=== PATIENT | male | born 2000 | race Caucasian/White ===

== ENCOUNTER 2024-12-07 10:04 | Outpatient (CLI) | payer OTHER, SELFPAY ==
--- OUTSIDE RECORDS SUMMARY | 2024-12-07 11:14 | XMS_ITS | Clinical Summary ---
Author Organization [facility] Address [address] [place] [id number] Care Team Providers Care Employee Benefits Coordinator Name Role Phone Myrna Estrada PA-C Primary Care Provid er Allergies No known active allergies Medications ARIPiprazole (ABILIFY) 10 MG tablet Take 1 tablet (10 mg) by mouth daily Active divalproex (DEPAKOTE) 500 MG ER tablet Take 1 tablet (500 mg) by mouth at bedtime Active escitalopram (LEXAPRO) 10 MG tablet Take 1 tablet (10 mg) by mouth daily 11/06/2023 Active escitalopram (LEXAPRO) 20 MG tablet Take 1 tablet (20 mg) by mouth daily 11/06/2023 Active finasteride (PROPECIA) 1 MG tablet Take 1 tablet (1 mg) by mouth daily Active minoxidil (LONITEN) 2.5 MG tablet Take 1 tablet (2.5 mg) by mouth daily Active OLANZapine (ZYPREXA) 10 MG tablet Take 1 tablet (10 mg) by mouth at bedtime Active OLANZapine (ZYPREXA) 15 MG tablet Take 1 tablet (15 mg) by mouth daily 11/06/2023 Active Cholecalciferol 50 MCG (2000 UT) CAPS Take 1 capsule (2,000 Units) by mouth Nightly 08/17/2024 Active hydrOXYzine (ATARAX) 50 MG tablet Take 1 tablet (50 mg) by mouth 3 times daily as needed 08/17/2024 Active metFORMIN (GLUCOPHAGE XR) 500 MG XR tablet Take 2 tablets (1,000 mg) by mouth Nightly 08/17/2024 Active sertraline (ZOLOFT) 50 MG tablet Take 1 tablet (50 mg) by mouth daily Active traZODone (DESYREL) 50 MG tablet Take 1 tablet (50 mg) by mouth at bedtime 08/17/2024 Active vitamin B-12 (CYANOCOBALAMIN ) 1000 MCG tablet Take 1 tablet (1,000 mcg) by mouth daily Active gabapentin (NEURONTIN) 100 MG capsuleIndicati ons:Paresthesia of finger Take 2 capsules (200 mg) by mouth at bedtime 60 capsule 1 10/19/2024 01/18/20 25 Active Active Problems Problem Noted Date Diagnosed Date History of OCD (obsessive compulsive disorder) 0 09/20/2024 Migraine without aura and responsive to treatmen t 09/16/2024 Paresthesia of finger 09/16/2024 Bilateral impacted cerumen 07/14/2023 Male pattern alopecia 11/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 Allergic rhinitis 10/01/2022 Seasonal allergies 10/01/2022 Persistent insomnia 09/10/2022 Severe recurrent major depre ssion without psychotic features 04/03/2021 Mixed anxiety and depressive disorder 03/24/2021 Resolved Problems Problem Noted Date Diagnosed Date Resolved Date Anxiety 12/18/2020 09/16/2024 Encounters Date Type Department Care Team Description 10/19/[address] [phone] Myrna Estrada PA-C Medication Refill 10/13/2024 Orders Only [address] [phone] Myrna Estrada PA-C Paresthesia of finger (Primary Dx) 10/07/[address] [phone] Myrna Estrada PA-C Other 09/23/2024 Orders Only [address] [phone] Myrna Estrada PA-C Paresthesia of finger (Primary Dx) 09/23/[address] [place] [address] Myrna Estrada PA-C New Med Request 09/23/2024 Orders Only [address] [phone] Myrna Estrada PA-C Paresthesia of finger (Primary Dx) 09/22/[address] [phone] Myrna Estrada PA-C Other (Referral Follow Up) 09/20/[address] [phone] Myrna Estrada PA-C Finger Pain (Finger Numbness) 09/19/2024 Orders Only [address] [phone] Myrna Estrada PA-C Vitamin B 12 deficiency (Primary Dx) 09/18/2024 Results Follow-Up [address] [phone] Myrna Estrada PA-C VITAMIN B12 REFERENCE, TSH THIRD GENERATION 09/16/2024 6:30 PM CDT Lab/X-Ray Only [address] [phone] 09/16/2024 7:30 AM CDT Office Visit [address] [phone] Myrna Estrada PA-C Paresthesia of finger (Primary Dx); Mixed anxiety and depressive disorder from Last 3 Months Immunizations Immunization Administration Dates Next Due DTaP 02/18/2007, 5,05/09/2003,03/01,2002 HPV, 9-Valent 04/01/2017,11/01/2014 Hepatitis A, Ped/Adol 2 dose 04/01/2017,11/02/19 15 Hepatitis B, Ped/Adolescent 05/09/2003, 3,2002 HiB (PRP-OMP) 05/10/2004, 4,03/01/2003,12/28 IPV 02/18/2007, 4,03/01/2003,12/28 MMR 05/10/2004 MMRV 02/18/2007 Meningococcal B, Omv 12/14/2018 Meningococcal Conjugate MCV4 P (Menactra) 12/14/2018,11/01/2014 Pneumococcal Conjugate PCV7 05/09/2003, 4,2002 Tdap 11/01/2014 Varicella (Chickenpox) 10/30/2003,05/09/2003 pneumococcal Conjugate PCV13 10/30/2003 Social History Tobacco Use Types Packs/Day Years Used Date Smoking Tobacco: Never Passive Smoke Exposure: Never Smokeless Tobacco: Never Tobacco Cessation:Counseling Given: Yes Humiliation, Afraid, Rape, and Kick questionnair e Answer Date Recorded Within the last year, have y ou been afraid of your partner or ex-partner? No 09/16/2024 Within the last year, have y ou been humiliated or emotionally abused in other ways by your partner or ex-partner? No Within the last year, have y ou been kicked, hit, slapped, or otherwise physically hurt by your partner or ex-partner? No 09/16/2024 Within the last year, have y ou been raped or forced to have any kind of sexual activity by your partner or ex-partner? No 09/16/2024 Sex and Gender Information Value Date Recorded Sex Assigned at Not on file Legal Sex Male 9:05 AM CDT Gender Identity Not on file Sexual Orientation Not on file Last Filed Vital Signs Vital Sign Reading Time Taken Comments Blood Pressure 138/100 09/16/2024 7:36 AM CDT Pulse 77 09/16/2024 7:36 AM CDT Temperature 36.1 C (96.9 F) 09/16/2024 7:36 AM CDT Respiratory Rate 18 09/16/2024 7:36 AM CDT Oxygen Saturation 98% 09/16/2024 7:36 AM CDT Inhaled Oxygen Concentration - - Weight 125.2 kg (276 lb 1.6 oz) 09/16/2024 7:36 AM CDT Height 181.6 cm (5' 11.5) 09/16/2024 7:36 AM CD T Body Mass Index 37.97 09/16/2024 7:36 AM CDT Plan of Treatment Health Maintenance Due Date Last Done Comments YEARLY WELLNESS EXAM 2005 DEPRESSION SCREENING 2014 BMI Above/Below Normal Parameters 2020 COVID-19 Immunization ( season) 2024 ADULT TETANUS 11/01/2024 11/01/2014 DTaP/Tdap/Td Vaccines (7 - Td or Tdap) 11/01/2024 11/01/2014, 02/18/2007, 05/10/2004, Additional history exists Influenza Vaccine 11/09/2025 Postponed from 09/09/2024 (Patient defers for now but may consider at later date) Zoster Vaccine (Recombinant Vaccine) (1 of 2) 2052 HEPATITIS B VACCINES Completed 05/09/2003, 2002, 2002 Pneumococcal Vaccine: Peds to 50 & At-Risk Patients Completed 10/30/2003, 05/09/2003, 03/01/2003, Additional history exists HIB VACCINES Completed 05/10/2004, 04/11, 03/01/2003, Additional history exists IPV VACCINES Completed 02/18/2007, 04/11, 03/01/2003, Additional history exists MMR VACCINES Completed 02/18/2007, 05/10/2004 Varicella Vaccine Completed 02/18/2007, , 05/09/2003 HEPATITIS A VACCINES Completed 04/01/2017, 11/02/19 15 HPV VACCINES Completed 04/01/2017, 11/01/2014 MENINGOCOCCAL VACCINE Completed 12/14/2018, 015 Meningococcal B Vaccine Discontinued 12/14/2018 HIV Screening Discontinued Hepatitis C Screening ages 18 to 79 once Discontinued ROTAVIRUS VACCINES Aged Out No longer eligible based on patient's age to complete this topic Procedures Procedure Name Priority Date/Time Associated Diagnosis Comments TSH THIRD GENERATION Routine 09/16/2024 8:11 AM CDT VITAMIN B12 REFERENCE Routine 09/16/2024 8:11 AM CDT from Last 3 Months Results * VITAMIN B12 REFERENCE (09/16/2024 8:11 AM CDT) Pathologist [facility] VITAMIN B12 257 232 - 1,245 pg/mL [facility] Comment: (NOTE) Performed At: [facility] [id number] Moy Emerson PhD Ph:[phone] 09/16/2024 8:11 AM CDT 09/16/2024 6:31 PM CDT Myrna Estrada PA-C LAB SEND OUT ORDERAB LES Final Result [address] [phone] * TSH THIRD GENERATION (09/16/2024 8:11 AM CDT) Pathologist [facility] TSH High Sensitivity 3.22 0.465 - 4.68 uIU/ML [facility] 09/16/2024 8:11 AM CDT 09/16/2024 6:31 PM CDT Myrna Estrada PA-C CHEMISTRY ORDERABLES [place] [address], [facility] [phone] from Last 3 Months Insurance [facility] [address] Care Teams Employee Benefits Coordinator Relationship Specialty Start Date End Date Myrna Estrada PA-C [address] [place] [phone] PCP - General Physician Pig Machine Supervisor 09/24/23
--- OUTSIDE RECORDS SUMMARY | 2024-12-07 11:14 | XMS_ITS | Clinical Summary ---
Author Organization [facility] Address [address] [place] [address] Care Team Providers Care Courier Delivery Driver Name Role Phone Fabiola Fernandez LCPC Unavailable Unavailable Myrna Estrada Primary Care Provider [phone] Source Comments [facility],non-owned Affiliates and Associated Physician Practices is amultiple site organization consisting of ambulatory clinics and hospital sitesin [place], [place], [place] and [place]. This disclosure is being madepursuant to the Care Everywhere program and may not contain all information available regarding this patient. Last updated 17.[facility] Allergies No known active allergies Medications * This document contains information received from the source organization and may not represent a complete record from that organization. * Be aware that medications may not be up to date on this document. Alwaysverify current medications with the patient. finasteride (Propecia) 1 MG tablet Take 1 (one) tablet by mouth once daily Active minoxidil (Loniten) 2.5 MG tablet Take 1 (one) tablet by mouth once daily Active escitalopram (Lexapro) 20 MG tabletIndication s:MDD (major depressive disorder), recurrent episode, moderate (HCC),Generalize d anxiety disorder,Obsessi ve-compulsive disorder, unspecified type,Autism spectrum disorder (HCC) Take 1 (one) tablet by mouth at bedtime 30 tablet 2 5 Active escitalopram (Lexapro) 10 MG tabletIndication s:MDD (major depressive disorder), recurrent episode, moderate (HCC),Generalize d anxiety disorder,Obsessi ve-compulsive disorder, unspecified type,Autism spectrum disorder (HCC) TAKE 1 TABLET BY MOUTH AT BEDTIME WITH 20MG FOR TOTAL DOSE OF 30MG 30 tablet 2 5 Active hydrOXYzine HCl (Atarax) 50 MG tabletIndication s:Generalized anxiety disorder,Obsessi ve-compulsive disorder, unspecified type,Autism spectrum disorder (HCC) Take 1 (one) tablet by mouth nightly as needed (sleep/anxiety) 30 tablet 2 5 Active Vitamin D3 (Cholecalciferol ) 50 MCG (2000 UT) capsuleIndicatio ns:Vitamin D Deficiency Take 1 (one) capsule by mouth once daily Reasons: Vitamin D Deficiency 30 capsule 5 5 Active traZODone (Desyrel) 50 MG tabletIndication s:Insomnia Take 1 (one) tablet by mouth nightly as needed for Insomnia Reasons: Trouble Sleeping 30 tablet 3 5 Active metFORMIN ER 24hr (Glucophage XR) 500 MG tabletIndication s:Weight gain due to medication Take 2 (two) tablets by mouth daily with dinner 60 tablet 1 5 Active Active Problems Problem Noted Date Diagnosed Date Severe recurrent major depre ssion without psychotic features 04/03/2021 Generalized anxiety disorder 04/03/2021 Social History Tobacco Use Types Packs/Day Years Used Date Smoking Tobacco: Never Smokeless Tobacco: Never Tobacco Cessation:Counseling Given: Not Answered Alcohol Use Standard Drinks/Week Comments Never 0 (1 standard drink = 0.6 oz pur e alcohol) AUDIT-C Answer Date Recorded Q1: How often do you have a drink containing alcohol? Never 04/08/2023 Q2: How many drinks containi ng alcohol do you have on a typical day when you are drinking? Patient does not drink Q3: How often do you have si x or more drinks on one occasion? Never 04/08/2023 PHQ-2 Answer Date Recorded Patient Health Questionnaire-2 Score 1 07/06/2024 Sex and Gender Information Value Date Recorded Sex Assigned at Not on file Legal Sex Male 4:13 PM [employer] Gender Identity Not on file Sexual Orientation Not on file Last Filed Vital Signs Vital Sign Reading Time Taken Comments Blood Pressure 107/83 08/17/2024 12:58 PM CDT Pulse 88 08/17/2024 12:58 PM CDT Temperature 36.9 C (98.5 F) 08/04/2023 10:35 AM CDT Respiratory Rate - - Oxygen Saturation 98% 08/04/2023 10: 35 AM CDT Inhaled Oxygen Concentration - - Weight 124.4 kg (274 lb 3.4 oz) 025 12:58 PM CDT Height 182.9 cm (6' 0.01) 08/17/2024 1 2:58 PM CDT Body Mass Index 37.18 08/17/2024 12:58 PM CDT Plan of Treatment Health Maintenance Due Date Last Done Comments HIV SCREENING 2017 HPV VACCINE (1 - Male 3-dose series) 2017 MENINGOCOCCAL (Group B) VACCINE SHARED DECISION-MAKING (1 of 2 - Standard) 2018 HEPATITIS C SCREENING 10/23/2020 DTAP/TDAP/TD VACCINES (1 - Tdap) 2021 HEPATITIS B VACCINE (1 of 3 - 19+ 3-dose series) 2021 COVID-19 VACCINE (1 - 2023-2 5 season) 2024 INFLUENZA VACCINE (#1) 2024 ZOSTER VACCINE (1 of 2) 2052 DEPRESSION SCREENING Completed 07/06/2024, 08/04/2023 HIB VACCINE Aged Out No longer eligi ble based on patient's age to complete this topic MENINGOCOCCAL GROUPS A/C/Y/W VACCINE Aged Out No longer eligible b ased on patient's age to complete this topic PNEUMOCOCCAL VACCINE Aged Out No long er eligible based on patient's age to complete this topic [place] [address] [place] [address] [facility] Care Teams Courier Delivery Driver Relationship Specialty Start Date End Date Myrna Estrada PA [address] [place] [address] PCP - General Physician Lye Boiler 04/07/24 Fabiola Fernandez LCPC Behavioral Health Therapist 04/08/23
--- OUTSIDE RECORDS SUMMARY | 2024-12-07 11:14 | XMS_ITS | Patient Health Record ---
Author Organization [facility] Address [address] [address] [address] [place] [address] Care Team Providers Care Vice President Regulatory Name Role Phone Dionicio Pena Primary Care Provider [phone] Olveraseotto Nevarez [phone] Reason For Referral No Information Medications Medication SIG (Take, Route, Frequency, Duration) Notes Start Date End Date Status Naprosyn 500 MG Tablet 1 tablet with sukhjinder d or milk as needed Orally every 12 hrs; Duration: 14 days 06/12/2017 Not-Taking Augmentin 875-125 MG Tablet 1 tablet Orally every 12 hrs; Duration: 14 days 03/14/2019 Not-Takin g Immunizations Vaccine Route Administration Date Status Comme nts CHIP Bexsero IM Intramuscular 12/14/2018 Administered CHIP Fluarix Quad Unknown 12/14/2018 Refused CHIP Menactra IM Intramuscular 12/14/2018 Administered Non VFC Boostrix Unknown 11/01/2014 Administered Non VFC Engerix B-Peds Unknown 2002 Administered Non VFC Engerix B-Peds Unknown 2002 Administered Non VFC Engerix B-Peds Unknown 05/09/2003 Administered Non VFC Gardasil 9 Unknown 11/01/2014 Administered Non VFC Havrix-Peds Unknown 11/01/2014 Administered Non VFC Infanrix Unknown 2002 Administered Non VFC Infanrix Unknown 03/01/2003 Administered Non VFC Infanrix Unknown 05/09/2003 Administered Non VFC Infanrix Unknown 05/10/2004 Administered Non VFC Infanrix Unknown 02/18/2007 Administered Non VFC IPV Unknown 2002 Administered Non VFC IPV Unknown 03/01/2003 Administered Non VFC IPV Unknown 05/09/2003 Administered Non VFC IPV Unknown 02/18/2007 Administered Non VFC Menactra Unknown 11/01/2014 Administered Non VFC MMR II Unknown 05/10/2004 Administered Non VFC Pedvax Unknown 2002 Administered Non VFC Pedvax Unknown 03/01/2003 Administered Non VFC Pedvax Unknown 05/09/2003 Administered Non VFC Pedvax Unknown 05/10/2004 Administered Non VFC Prevnar 13 Unknown 10/30/2003 Administered Non VFC Proquad Unknown 02/18/2007 Administered Non VFC Varivax Unknown 05/09/2003 Administered Non VFC Varivax Unknown 10/30/2003 Administered VFC Gardasil 9 IM Intramuscular 04/01/2017 Administered VFC Havrix-Peds IM Intramuscular 04/01/2017 Administered X Prevnar 7 Unknown 2002 Administered X Prevnar 7 Unknown 03/01/2003 Administered X Prevnar 7 Unknown 05/09/2003 Administered Social History Tobacco Use: Social History Observation Description Date Details (start date - stop date) Never Smoker NA - NA Social History [facility] Social Info Question Answer Notes Household/Enviromental Risk Factors: Any Patient/Famil y Concerns : No Do you have any social/cultu ral characteristics? Social Characteristics: Yes Concerns with daily living situations: None Support from family/friends: Yes Participation in community activities: No Cultural Characteristics: No Communication Barriers Are: None Assessment of Health Literacy Understands how to take medication Yes Understands risks/side effects of medication Yes Is the patient able to afford their medication Y es Drugs/Alcohol: Social Info Question Answer Notes DAST Total Score: 0 Interpretation: No problems reported Tobacco Use: Social Info Question Answer Notes Tobacco Use/Smoking Are you a nonsmoker Additional Details Category Social Info Options Details Miscellaneous: Home smoke detector use: s moke detectors, carbon monoxide detector Living with: family Smokers in the home: no Problems Problem Type SNOMED Code ICD Code Onset Dates Problem Status W/U Status Risk Notes Problem Migraine without aura, not refractory (443582686) Migraine without aura and without status migrainosus, not intractable (G43.009) Active confirmed Problem Refractory migraine without aura (532492514) Intractable migraine without aura and without status migrainosus (G43.019) Active confirmed Encounters Encounter Location Date Provider Diagnosis [facility] [address] [place] [address] 12/06/2024 Keli Olvera Plan Of Treatment No Information Insurance Providers Payer Name Payer Address Payer Phone Subscriber Number Group Number Insured Name Patient Relationship to Insured Coverage Start Date Coverage End Date [facility] [address] [place] [address] [id number] Jah Rodriguez Self - patient is the insured 9 [facility] FFS [address] [place] [address] [id number] Jah oRdriguez Self - patient is the insured 9 [facility] Nonbillable [address] [place] [address] [id number] Jah Rodriguez Self - patient is the insured 9 Medical (General) History Surgical History Surgery Date(Month/Year)
--- NOTE | 2024-12-07 11:15 | NEURO_ITS ---
Impression: # Complains of pain in upper extremities. ? # Normal Nerve Conduction Study. ? # No Carpal Tunnel Syndrome or ulnar neuropathy. ? # Normal needle/EMG exam including proximal muscles. Nerve Conduction Studies ?Stim Site NR Peak (ms) P-T Amp (?V) Site1 Site2 Delta-P (ms) Dist (cm) Blaise (m/s) Left Median Anti Sensory (2-3nd Digit) Wrist ? 3.0 86.5 Wrist 2-3nd Digit 3.0 14.0 47 Wrist ? 2.9 81.3 Wrist 2-3nd Digit 3.0 14.0 47 Right Median Anti Sensory (2-3nd Digit) Wrist ? 2.7 63.6 Wrist 2-3nd Digit 2.7 14.0 52 Wrist ? 2.6 77.3 Wrist 2-3nd Digit 2.7 14.0 52 Left Radial Anti Sensory (Base 1st Digit) Wrist ? 1.7 22.0 Wrist Base 1st Digit 1.7 0.0 Right Radial Anti Sensory (Base 1st Digit) Wrist ? 2.0 18.9 Wrist Base 1st Digit 2.0 0.0 Left Ulnar Anti Sensory (5th Digit) Wrist ? 2.4 79.6 Wrist 5th Digit 2.4 14.0 58 Right Ulnar Anti Sensory (5th Digit) Wrist ? 2.0 55.9 Wrist 5th Digit 2.0 14.0 70 ?Stim Site NR Onset (ms) O-P Amp (mV) Site1 Site2 Delta-0 (ms) Dist (cm) Blaise (m/s) Left Median Motor (Abd Poll Brev) Wrist ? 2.8 8.7 Elbow Wrist 5.2 30.0 58 Elbow ? 8.0 8.4 Right Median Motor (Abd Poll Brev) Wrist ? 2.7 10.0 Elbow Wrist 5.2 32.0 62 Elbow ? 7.9 7.4 Left Ulnar Motor (Abd Dig Minimi) Wrist ? 2.3 9.6 A Elbow Wrist 5.7 34.0 60 A Elbow ? 8.0 8.9 B Elbow Wrist 4.1 24.0 59 B Elbow ? 6.4 10.1 Right Ulnar Motor (Abd Dig Minimi) Wrist ? 2.1 8.3 A Elbow Wrist 5.6 34.0 61 A Elbow ? 7.7 7.4 B Elbow Wrist 4.0 24.0 60 B Elbow ? 6.1 7.4 F Wave Studies ?NR F-Lat (ms) L-R F-Lat (ms) Left Median (Mrkrs) (Abd Poll Brev) ? 26.95 0.22 Right Median (Mrkrs) (Abd Poll Brev) ? 27.17 0.22 Left Ulnar (Mrkrs) (Abd Dig Min) ? 28.73 0.89 Right Ulnar (Mrkrs) (Abd Dig Min) ? 29.62 0.89 Electromyography ?Side Muscle Nerve Root Ins Act Fibs Amp Dur Recrt Comment Right 1stDorInt Ulnar C8-T1 Nml Nml Nml Nml Nml Right Ext Indicis Radial (Post Int) C7-8 Nml Nml Nml Nml Nml Right Ext Digitorum Radial (Post Int) C7-8 Nml Nml Nml Nml Nml Right BrachioRad Radial C5-6 Nml Nml Nml Nml Nml Right PronatorTeres Median C6-7 Nml Nml Nml Nml Nml Right Abd Poll Brev Median C8-T1 Nml Nml Nml Nml Nml Right ABD Dig Min Ulnar C8-T1 Nml Nml Nml Nml Nml Right FlexPolLong Median (Ant Int) C7-8 Nml Nml Nml Nml Nml Right Abd Poll Long Radial (Post Int) C7-8 Nml Nml Nml Nml Nml Left 1stDorInt Ulnar C8-T1 Nml Nml Nml Nml Nml Left Ext Indicis Radial (Post Int) C7-8 Nml Nml Nml Nml Nml Left Ext Digitorum Radial (Post Int) C7-8 Nml Nml Nml Nml Nml Left BrachioRad Radial C5-6 Nml Nml Nml Nml Nml Left PronatorTeres Median C6-7 Nml Nml Nml Nml Nml Left Abd Poll Brev Median C8-T1 Nml Nml Nml Nml Nml Left ABD Dig Min Ulnar C8-T1 Nml Nml Nml Nml Nml Left FlexPolLong Median (Ant Int) C7-8 Nml Nml Nml Nml Nml Left Abd Poll Long Radial (Post Int) C7-8 Nml Nml Nml Nml Nml Right Biceps Musculocut C5-6 Nml Nml Nml Nml Nml Right Triceps Radial C6-7-8 Nml Nml Nml Nml Nml Right Deltoid Axillary C5-6 Nml Nml Nml Nml Nml Left Biceps Musculocut C5-6 Nml Nml Nml Nml Nml Left Triceps Radial C6-7-8 Nml Nml Nml Nml Nml Left Deltoid Axillary C5-6 Nml Nml Nml Nml Nml
== END 2024-12-07 10:05 | disposition home or self-care (01) ==
LOC: ANHNEURO 10:05
DX: R20.2 Paresthesia of skin (principal); M79.644 Pain in right finger(s)
CPT/HCPCS: 95886; 95911